=== PATIENT | female | born 1975 | race Caucasian/White ===

== ENCOUNTER → 2016-11-03 | Outpatient (CLI) | payer BC, OTHER ==
[2016-05-16 21:20] VITALS: BP 130/70
[~2016-11-03] MED LIST: AZIT250T PO; HYDR-971 PO; INSU100I7 SQ; META-21 PO; PRED50TA PO; TRAM50TA PO
--- NOTE | 2016-11-03 15:23 | RAD ---
Indication: Heavy menses. Transabdominal and transvaginal sonography was performed. The uterus measures 11.9 x 7.8 x 6.2 cm. The endometrium is 10 mm in thickness. No uterine mass is identified. There are small cervical nabothian cysts. The right ovary measures 2.4 x 2.0 x 1.7 cm. The left ovary measures 3.5 x 2.8 x 2.2 cm. No adnexal mass or free fluid is seen. Impression: Unremarkable transabdominal and transvaginal pelvic ultrasound.
== END | disposition home or self-care (01) ==
LOC: US 13:25
PROVIDERS: ATTEND Nurse Practitioner Family
DX: N93.9 Abnormal uterine and vaginal bleeding, unspecified (principal)
CPT/HCPCS: 76830; 76856

== ENCOUNTER 2016-12-14 13:52 | Observation (INO) | payer OTHER ==
[~2016-12-14] VITALS: Ht 165.1 cm; Wt 120.3 kg
[2016-12-14 14:29] LABS: BASO # 0.1 x10^3/uL (0.0-0.2); BASO % 1 % (0-3); EOS # 0.2 x10^3/uL (0.0-0.7); EOS % 2 % (0-3); HEMATOCRIT 33.7 % (36.0-47.0); LYMPH % 24 % (24-48); MEAN CORPUSCULAR HEMOGLOBIN 27 pg (25-35); MEAN CORPUSCULAR HGB CONC 33 g/dL (31-37); MEAN CORPUSCULAR VOLUME 81 fL (79-100); MONO # 0.8 x10^3/uL (0.0-1.1); MONO % 7 % (0-9); NEUT # 8.2 x10^3uL (1.8-7.7); NEUT % 67 % (31-73); PLATELET COUNT 330 x10^3/uL (140-400); RED BLOOD COUNT 4.14 x10^6/uL (3.50-5.40); RED CELL DISTRIBUTION WIDTH 17.3 % (11.5-14.5); WHITE BLOOD COUNT 12.3 x10^3/uL (4.0-11.0)
[2016-12-14] MEDS ORDERED: ASPIRIN 81 MG TAB.CHEW PO ONE (14:30)
[2016-12-14] MEDS ORDERED: NITROGLYCERIN SUBLINGUAL 0.4 MG BOTTLE OF 25. SL ONE (14:30)
--- NOTE | 2016-12-14 14:31 | RAD ---
Portable chest, 12/14/2016: History: Chest pain Comparison is made to a study from 09/06/2011. The heart is near the upper limits of normal in size. The pulmonary vascularity is normal. No pulmonary infiltrates are seen. There is no evidence of pleural fluid. IMPRESSION: No acute cardiopulmonary abnormality is detected.
[2016-12-14 14:39] LABS: CALCIUM 8.9 mg/dL (8.5-10.1); GFR 61.7; POTASSIUM 3.6 mmol/L (3.5-5.1)
[2016-12-14] MEDS ORDERED: IV NORMAL SALINE 1,000ML 1,000 ML IV ONE (14:45)
--- NOTE | 2016-12-14 15:06 | EKG ---
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
[2016-12-14] MEDS ORDERED: NITROGLYCERIN SUBLINGUAL 0.4 MG BOTTLE OF 25. SL PRN (15:15)
[2016-12-14] MEDS ORDERED: ONDANSETRON PF 4 MG/2 ML VIAL. IV PRN (15:15)
[2016-12-14] MEDS ORDERED: MORPHINE SULFATE 2 MG/ML DISP.SYRIN. IV PRN (15:15)
--- NOTE | 2016-12-14 15:41 | PHYS DOC ---
Past History Past Medical History: Asthma, Diabetes Past Surgical History: Cholecystectomy, Smoking: Cigarettes Alcohol Use: Occasionally Drug Use: None Adult General Chief Complaint Chief Complaint: CHEST PAIN HPI HPI 41-year-old female presenting the emergency department with chest pain. She describes the pain as a pressure sensation along the mid chest. It radiates down her left arm and is associated with nausea. She denies shortness of breath or abdominal pain. The pressure is mild to moderate intermittent and is been present since about 8:00 this morning. She reports a family history of heart disease. She states her father had a heart attack in his mid to late 30s. She denies unilateral leg swelling hemoptysis personal or family history of blood clotting disorders. Review of systems is negative for fevers chills cough. Positive for nausea and chest pain. All other review of systems is negative unless otherwise noted in history of present illness. ED course: 41-year-old female presenting with chest pain. EKG obtained.EKG shows sinus rhythm with tachy rate. Normal intervals. Normal axis. ST segments are congruent. Not suggestive of ACS. Reviewed by myself. Chest x-ray obtained as well. Blood work obtained. Initial troponin negative. Patient given aspirin and nitroglycerin. Given the patient's pain description and family history, the patient was admitted for serial blood tests and cardiology consultation. Review of Systems Review of Systems SEE ABOVE. Current Medications Current Medications Current Medications Medications (Trade) Dose Ordered Sig/[facility] Start Time Stop Time Status Last Admin Dose Admin Aspirin (Children'S Aspirin) 324 mg 1X ONCE 12/14/16 14:30 12/14/16 14:31 DC 12/14/16 14:30 324 MG Morphine Sulfate (Morphine 2mg Syringe) 2 mg PRN Q2HR PRN 12/14/16 15:15 12/15/16 15:14 Nitroglycerin (Nitrostat) 0.4 mg PRN Q5MIN PRN 12/14/16 15:15 12/15/16 15:14 Ondansetron HCl (Zofran) 4 mg PRN Q4HRS PRN 12/14/16 15:15 12/15/16 15:14 Sodium Chloride 1,000 ml @ 1,000 mls/hr 1X ONCE 12/14/16 14:45 12/14/16 15:44 12/14/16 14:45 1,000 MLS/HR Allergies Allergies Allergies Coded Allergies Type Severity Reaction Last Updated Verified No Known Drug Allergies 01/14/15 No Physical Exam Physical Exam Constitutional: Well developed, well nourished, no acute distress, non-toxic appearance. [] HENT: Normocephalic, atraumatic, bilateral external ears normal, oropharynx moist, no oral exudates, nose normal. [] Eyes: PERRLA, EOMI, conjunctiva normal, no discharge. [] Neck: Normal range of motion, no tenderness, supple, no stridor. [] Cardiovascular:Heart rate regular rhythm, no murmur [] Lungs & Thorax: Bilateral breath sounds clear to auscultation [] Abdomen: Bowel sounds normal, soft, no tenderness, no masses, no pulsatile masses. [] Skin: Warm, dry, no erythema, no rash. [] Back: No tenderness, no CVA tenderness. [] Extremities: No tenderness, no cyanosis, no clubbing, ROM intact, no edema. [] Neurologic: Alert and oriented X 3, normal motor function, normal sensory function, no focal deficits noted. [] Psychologic: Affect normal, judgement normal, mood normal. [] Current Patient Data Vital Signs Vital Signs Date Time Temp Pulse Resp B/P (MAP) Pulse Ox O2 Delivery O2 Flow Rate FiO2 12/14/16 14:30 100 121/62 Lab Results Laboratory Tests Test 12/14/16 14:14 White Blood Count 12.3 x10^3/uL (4.0-11.0) H Red Blood Count 4.14 x10^6/uL (3.50-5.40) Hemoglobin 11.0 g/dL (12.0-15.5) L Hematocrit 33.7 % (36.0-47.0) L Mean Corpuscular Volume 81 fL (79-100) Mean Corpuscular Hemoglobin 27 pg (25-35) Mean Corpuscular Hemoglobin Concent 33 g/dL (31-37) Red Cell Distribution Width 17.3 % (11.5-14.5) H Platelet Count 330 x10^3/uL (140-400) Neutrophils (%) (Auto) 67 % (31-73) Lymphocytes (%) (Auto) 24 % (24-48) Monocytes (%) (Auto) 7 % (0-9) Eosinophils (%) (Auto) 2 % (0-3) Basophils (%) (Auto) 1 % (0-3) Neutrophils # (Auto) 8.2 x10^3uL (1.8-7.7) H Lymphocytes # (Auto) 3.0 x10^3/uL (1.0-4.8) Monocytes # (Auto) 0.8 x10^3/uL (0.0-1.1) Eosinophils # (Auto) 0.2 x10^3/uL (0.0-0.7) Basophils # (Auto) 0.1 x10^3/uL (0.0-0.2) D-Dimer (Anyi) 0.58 mg/L (0.00-0.50) H Sodium Level 140 mmol/L (136-145) Potassium Level 3.6 mmol/L (3.5-5.1) Chloride Level 103 mmol/L (98-107) Carbon Dioxide Level 29 mmol/L (21-32) Anion Gap 8 (6-14) Blood Urea Nitrogen 8 mg/dL (7-20) Creatinine 1.0 mg/dL (0.6-1.0) Estimated GFR (Cockcroft-Gault) 61.7 Glucose Level 167 mg/dL (70-99) H Calcium Level 8.9 mg/dL (8.5-10.1) Troponin I Quantitative < 0.017 ng/mL (0-0.055) EKG EKG EKG shows sinus rhythm with mild tachycardia. [place] is mildly leftward. ST segments congruent. Reviewed by myself. [] Radiology/Procedures Radiology/Procedures [] Course & Med Decision Making Course & Med Decision Making Pertinent Labs and Imaging studies reviewed. (See chart for details) [] Dragon Disclaimer Dragon Disclaimer This chart was dictated in whole or in part using Voice Recognition software in a busy, high-work load, and often noisy Emergency Department environment. It may contain unintended and wholly unrecognized errors or omissions. Departure Departure: Impression: Primary Impression: Chest pain Disposition: ADMITTED INPATIENT Admitting Physician: Sam Bradford Condition: STABLE Referrals: SAM BRADFORD MD (PCP) ÓSCAR STEEN MD Dec 14, 2016 15:41
[2016-12-14] MEDS ORDERED: IOHEXOL 300 MG/ML 75 ML VIAL. IV ONE (16:00)
--- NOTE | 2016-12-14 16:32 | RAD ---
Indication chest pain. Elevated d-dimer. Axial images through the chest were obtained. The examination was tailored for the detection of pulmonary embolus. MIP images were generated and reviewed. 75 cc of Omnipaque 300 was administered intravenously. No prior CT imaging of the chest is available. The study is negative for pulmonary embolus. The thoracic aorta appears unremarkable. Significant hilar or mediastinal adenopathy is not seen. An acute parenchymal infiltrate is not seen. A dominant soft tissue mass in either lung is not seen. Imaging through the upper abdomen shows no acute finding. Clips are noted in the gallbladder fossa IMPRESSION: No acute finding seen in the chest. Negative study for pulmonary embolus PQRS Compliance Statement: One or more of the following individualized dose reduction techniques were utilized for this examination: 1. Automated exposure control 2. Adjustment of the mA and/or kV according to patient size 3. Use of iterative reconstruction technique
[2016-12-14 18:21] VITALS: BP 105/73
[2016-12-14 19:31] VITALS: BP 94/62
[2016-12-14] MEDS ORDERED: ACETAMINOPHEN 500 MG TABLET PO PRN (19:45)
[2016-12-14] MEDS: ACETAMINOPHEN 325 MG TABLET PO PRN (19:56)
[2016-12-14] MEDS ORDERED: DIPH25CA58 PO (21:07)
[2016-12-14] MEDS ORDERED: LISI1TAB3 PO (21:07)
[2016-12-14] MEDS ORDERED: GLIM2TAB2 PO (21:07)
[2016-12-14] MEDS ORDERED: diphenhydrAMINE HCL 25 MG CAPSULE PO SCH (21:30)
[2016-12-14 22:56] VITALS: BP 102/68
[2016-12-15 02:19] LABS: BASO # 0.1 x10^3/uL (0.0-0.2); BASO % 1 % (0-3); CALCIUM 8.6 mg/dL (8.5-10.1); CREATININE 0.7 mg/dL (0.6-1.0); EOS # 0.2 x10^3/uL (0.0-0.7); EOS % 2 % (0-3); GFR 93.2; HEMATOCRIT 32.9 % (36.0-47.0); HEMOGLOBIN 10.9 g/dL (12.0-15.5); LYMPH # 3.4 x10^3/uL (1.0-4.8); LYMPH % 33 % (24-48); MEAN CORPUSCULAR HEMOGLOBIN 27 pg (25-35); MEAN CORPUSCULAR HGB CONC 33 g/dL (31-37); MEAN CORPUSCULAR VOLUME 81 fL (79-100); MONO # 0.7 x10^3/uL (0.0-1.1); MONO % 7 % (0-9); NEUT # 5.8 x10^3uL (1.8-7.7); NEUT % 57 % (31-73); PLATELET COUNT 309 x10^3/uL (140-400); POTASSIUM 3.8 mmol/L (3.5-5.1); RED BLOOD COUNT 4.04 x10^6/uL (3.50-5.40); RED CELL DISTRIBUTION WIDTH 17.7 % (11.5-14.5); WHITE BLOOD COUNT 10.2 x10^3/uL (4.0-11.0)
[2016-12-15] MEDS: ACETAMINOPHEN 325 MG TABLET PO PRN ×2 (02:23→10:42)
[2016-12-15 05:32] VITALS: BP 103/67
[2016-12-15] MEDS ORDERED: GLIMEPIRIDE 2 MG TABLET PO SCH (08:00)
[2016-12-15 10:25] VITALS: BP 91/64
--- NOTE | 2016-12-15 10:28 | EKG ---
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 RI6.01 Unconfirmed report No previous ECG available for comparison Electronically Signed On 01-11-2017 11:36:51 CDT by Raimundo Max
--- NOTE | 2016-12-15 13:32 | CARD ---
APPROVED REPORT EXAM: Two-dimensional and M-mode echocardiogram with Doppler and color Doppler. Other Information Quality : Average Rhythm : NSR INDICATION Chest Pain 2D DIMENSIONS RVDd3.1 (2.9-3.5cm)Left Atrium(2D)3.9 (1.6-4.0cm) IVSd1.0 (0.7-1.1cm)Aortic Root(2D)2.8 (2.0-3.7cm) LVDd5.3 (3.9-5.9cm)LVOT Diameter2.1 (1.8-2.4cm) PWd1.0 (0.7-1.1cm)LVDs3.2 (2.5-4.0cm) FS (%) 35.1 %SV96.2 ml LVEF(%)65.3 (>50%) Aortic Valve AoV Peak Vimal.164.6cm/sAoV VTI36.3cm AO Peak GR.10.8mmHgLVOT Peak Vimal.113.3cm/s LVOT VTI 25.46cmAO Mean GR.7mmHg JAZMINE (VMAX)2.34rz9ENZ (VTI)2.52cm2 Mitral Valve MV E Ykhynnnw265.0cm/sMV DECEL YNRL158sg MV A Zykyxibw58.6cm/sMV KME67dq E/A Ratio1.0MV A Kzobagnt107vj MVA (PHT)3.24cm2 Tricuspid Valve TR P. Ekasfzkf601zb/sRAP EDSFIUII9omKy TR Peak Gr.84rtVeUGZF39pdOr Pulmonary Vein S1 Cirwzopu85.7cm/sD2 Dxhqcplh73.3cm/s LEFT VENTRICLE The left ventricle is normal size. There is normal left ventricular wall thickness. Left ventricle sy stolic function is normal. The Ejection Fraction is 60-65%. There is normal LV segmental wall motion. The left ventricular diastolic function and filling is normal for age. There is no ventricular septa l defect visualized. RIGHT VENTRICLE The right ventricle is normal size. The right ventricular systolic function is normal. ATRIA The left atrium size is normal. The right atrium size is normal. The interatrial septum is intact wit h no evidence for an atrial septal defect or patent foramen ovale as noted on 2-D or Doppler imaging. AORTIC VALVE The aortic valve is normal in structure and function. The aortic valve is trileaflet. Doppler and Col or Flow revealed no significant aortic regurgitation. There is no significant aortic valvular stenosi s. MITRAL VALVE The mitral valve is normal in structure and function. There is no mitral valve stenosis. Doppler and Color Flow revealed no mitral valve regurgitation noted. TRICUSPID VALVE The tricuspid valve is normal in structure and function. Doppler and Color Flow revealed trivial tric uspid regurgitation. The PA pressure was estimated at 15 mmHg. There is no tricuspid valve stenosis. PULMONIC VALVE The pulmonic valve is not well visualized. Doppler and Color Flow revealed trace pulmonic valvular re gurgitation. There is no pulmonic valvular stenosis. GREAT VESSELS The aortic root is normal in size. The ascending aorta is normal in size. The IVC is normal in size a nd collapses >50% with inspiration. PERICARDIAL EFFUSION There is no evidence of significant pericardial effusion. Critical Notification Critical Value: No <Conclusion> Left ventricle systolic function is normal. The Ejection Fraction is 60-65%. There is normal LV segmental wall motion.
== END 2016-12-15 16:57 | disposition home or self-care (01) ==
LOC: ER 13:52 → 1 SOUTH 15:11
PROVIDERS: ADMIT Family Medicine; ATTEND Family Medicine
DX: R07.9 Chest pain, unspecified (principal); J45.909 Unspecified asthma, uncomplicated; E11.9 Type 2 diabetes mellitus without complications; Z87.891 Personal history of nicotine dependence; Z82.49 Family history of ischemic heart disease and other diseases of the circulatory system
CPT/HCPCS: 36415; 71010; 71275; 80048; 81025; 82947; 84484; 85027; 85379; 93005; 93306; 96360; 99285; G0378; Q0163; Q9967; G0379; J7030

== ENCOUNTER 2017-05-28 23:16 | Emergency (ER) | payer OTHER ==
[~2017-05-28] VITALS: Ht 165.1 cm; Wt 128.1 kg
[~2017-05-28 23:16] MED LIST changes: +DIPH25CA58 PO; +GLIM2TAB2 PO; +LISI1TAB3 PO
[2017-05-28 23:20] VITALS: BP 106/62
--- NOTE | 2017-05-29 00:03 | PHYS DOC ---
Past History Past Medical History: Asthma, Diabetes Past Surgical History: Cholecystectomy, Smoking: Cigarettes Alcohol Use: Occasionally Drug Use: None Adult General Chief Complaint Chief Complaint: rectal foreign body HPI HPI Patient is a 42 year old female who presents with rectal foreign body. The patient reports about 30 minutes prior to arrival she placed a vibrator into her rectum & she could not remove it. Reports the object to be plastic, approx 7 cm in length. She denies any fevers/chills, nausea, vomiting, abdominal pain , rectal bleeding. Review of Systems Review of Systems Constitutional: Denies fever or chills Respiratory: Denies cough or shortness of breath Cardiovascular: Denies chest pain GI: Denies abdominal pain, nausea, vomiting, bloody stools or diarrhea. reports rectal foreign body. Musculoskeletal: Denies back pain Neurologic: Denies headache All other systems were reviewed and found to be within normal limits, except as documented in this note. Allergies Allergies Allergies Coded Allergies Type Severity Reaction Last Updated Verified No Known Drug Allergies 01/14/15 No Physical Exam Physical Exam Constitutional: obese, no acute distress, non-toxic appearance. HENT: Normocephalic, atraumatic, bilateral external ears normal, oropharynx moist, nose normal. Eyes: conjunctiva normal, no discharge. Cardiovascular: no edema. Lungs & Thorax: no respiratory distress. Abdomen: soft, nontender, nondistended. rectal: external hemorrhoids present circumferentially. with digital rectal exam, unable to palpate reported plastic foreign body. vibrations noted internally. Back: No CVA tenderness. Extremities: No deformity. Neurologic: Alert and oriented X 3 EKG EKG [] Radiology/Procedures Radiology/Procedures [] Course & Med Decision Making Course & Med Decision Making Pertinent Labs and Imaging studies reviewed. (See chart for details) The patient presents with rectal foreign body. I was unable to reach the object with digital rectal exam. Ordered KUB to determine location of the object. Notified by RN that the patient had had a bowel movement & spontaneously passed the foreign body. Her symptoms resolved completely & she requested to leave. Recommend follow up with primary care physician for additional concerns. Return for high fever, severe pain, uncontrolled vomiting , inability to have bowel movement, rectal bleeding, any otherwise worsening condition. Discharged home in stable condition. [] Dragon Disclaimer Dragon Disclaimer This electronic medical record was generated, in whole or in part, using a voice recognition dictation system. Departure Departure: Impression: Primary Impression: Rectal foreign body Disposition: HOME, SELF-CARE Condition: IMPROVED Referrals: LARISSA VACA MD (PCP) Patient Instructions: Foreign Body Additional Instructions: You were seen in the emergency department today for rectal foreign body. Avoid placing objects into your rectum as they can become stuck, cause perforation or infection. Follow up as needed with primary care. Problem Qualifiers Primary Impression: Rectal foreign body Encounter type: initial encounter Qualified Codes: T18.5XXA - Foreign body in anus and rectum, initial encounter KORY VEGA MD May 29, 2017 00:03
== END 2017-05-29 00:15 | disposition home or self-care (01) ==
LOC: ER 23:16
DX: T18.5XXA Foreign body in anus and rectum, initial encounter (principal); E11.9 Type 2 diabetes mellitus without complications; J45.909 Unspecified asthma, uncomplicated; F17.210 Nicotine dependence, cigarettes, uncomplicated; X58.XXXA Exposure to other specified factors, initial encounter; Y93.89 Activity, other specified; Y99.8 Other external cause status; Y92.89 Other specified places as the place of occurrence of the external cause
CPT/HCPCS: 99283

== ENCOUNTER 2017-08-21 09:46 | Inpatient (IN) | payer OTHER ==
[~2017-08-21] VITALS: Ht 165.1 cm; Wt 122.0 kg
[2017-08-21 10:15] VITALS: BP_SYST 123; BP_SYST 129; BP_DIAS 76
[2017-08-21] MEDS ORDERED: BECL8.7A6 IH (10:48)
[2017-08-21] MEDS ORDERED: PRED20TA PO (10:48)
[2017-08-21] MEDS ORDERED: CYCL-331 PO (10:48)
[2017-08-21] MEDS ORDERED: OSEL75CA PO (10:48)
[2017-08-21] MEDS ORDERED: BENZ100C PO (10:48)
[2017-08-21] MEDS ORDERED: MELO7.5T29 PO (10:48)
[2017-08-21 12:46] LABS: BASO # 0.1 x10^3/uL (0.0-0.2); BASO % 0 % (0-3); EOS # 0.2 x10^3/uL (0.0-0.7); EOS % 1 % (0-3); HEMATOCRIT 37.5 % (36.0-47.0); HEMOGLOBIN 12.2 g/dL (12.0-15.5); LYMPH # 2.3 x10^3/uL (1.0-4.8); LYMPH % 19 % (24-48); MEAN CORPUSCULAR HEMOGLOBIN 27 pg (25-35); MEAN CORPUSCULAR HGB CONC 33 g/dL (31-37); MEAN CORPUSCULAR VOLUME 83 fL (79-100); MONO # 0.6 x10^3/uL (0.0-1.1); MONO % 5 % (0-9); NEUT # 9.2 x10^3uL (1.8-7.7); NEUT % 75 % (31-73); PLATELET COUNT 325 x10^3/uL (140-400); RED BLOOD COUNT 4.52 x10^6/uL (3.50-5.40); RED CELL DISTRIBUTION WIDTH 16.3 % (11.5-14.5); WHITE BLOOD COUNT 12.3 x10^3/uL (4.0-11.0)
[2017-08-21 12:53] LABS: ALBUMIN 3.5 g/dL (3.4-5.0); ALBUMIN/GLOBULIN RATIO 0.8 (1.0-1.7); CALCIUM 9.5 mg/dL (8.5-10.1); CREATININE 0.9 mg/dL (0.6-1.0); GFR 69.3; POTASSIUM 3.9 mmol/L (3.5-5.1); TOTAL BILIRUBIN 0.1 mg/dL (0.2-1.0); TOTAL PROTEIN 8.1 g/dL (6.4-8.2)
[2017-08-21] MEDS: IV NORMAL SALINE 1,000ML 1,000 ML IV SCH ×2 (13:05→20:51)
[2017-08-21] MEDS: LACTOBACILLUS RHAMNOSUS GG 1 CAPSULE. PO SCH ×2 (13:06→20:51)
--- NOTE | 2017-08-21 13:22 | RAD ---
Chest, 2 views, 08/21/2017: History: Shortness of breath Comparison is made to a study from 12/14/2016. The heart size and pulmonary vascularity are normal. No pulmonary infiltrates are seen. There is no evidence of pleural fluid. Mild spurring is present in the spine. IMPRESSION: No acute cardiopulmonary abnormality is detected.
[2017-08-21] MEDS: IPRATRPIUM/ALBUTEROL 0.5/2.5MG 3 ML NEBU. NEB SCH ×3 (13:25→20:33)
[2017-08-21 13:48] LABS: COLOR,URINE STRAW
[2017-08-21 13:49] LABS: BACTERIA,URINE MANY /HPF (0-FEW); BILIRUBIN,URINE NEG (NEG); CLARITY,URINE HAZY; GLUCOSE,URINE NEG (NEG); NITRITE,URINE POS (NEG); RBC,URINE 0 /HPF (0-2); SQUAMOUS EPITHELIAL CELL,UR FEW /LPF; UROBILINOGEN,URINE 0.2 mg/dL (0.2 mg/dL)
--- NOTE | 2017-08-21 13:51 | EKG ---
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
--- NOTE | 2017-08-21 14:12 | RAD ---
CTA of the chest with contrast, 08/21/2017: History: Difficulty breathing, shortness of breath Multidetector CT imaging was performed following IV bolus injection of iodinated contrast material. Multiplanar reconstructions were produced including coronal and sagittal MIP images. No filling defects are seen in the central pulmonary arteries to suggest pulmonary bullae. The thoracic aorta is of normal caliber. No mediastinal or hilar adenopathy is seen. A trace amount of pericardial fluid is present. No significant pulmonary infiltrate or mass is identified. There is no evidence of pleural fluid. IMPRESSION: No CT evidence of central pulmonary emboli. PQRS Compliance Statement: One or more of the following individualized dose reduction techniques were utilized for this examination: 1. Automated exposure control 2. Adjustment of the mA and/or kV according to patient size 3. Use of iterative reconstruction technique
[2017-08-21 15:12] VITALS: BP 95/60
[2017-08-21] MEDS ORDERED: IPRATRPIUM/ALBUTEROL 0.5/2.5MG 3 ML NEBU. NEB SCH (16:00)
[2017-08-21] MEDS: BENZONATATE 100 MG CAPSULE. PO SCH ×2 (16:24→20:51)
[2017-08-21] MEDS: HEPARIN PF for SUB-Q USE 5,000 UNIT/0.5 ML VIAL. SQ SCH ×2 (16:30→20:53)
[2017-08-21] MEDS ORDERED: DEXTROSE 50% 25 GM / 50ML DISP.SYRIN. IV PRN (18:00)
[2017-08-21 20:01] VITALS: BP 138/76
[2017-08-21] MEDS: BUDESONIDE 0.5 MG/2 ML NEBU NEB SCH (20:33)
[2017-08-21] MEDS: OSELTAMIVIR 75 MG CAPSULE PO SCH (20:51)
[2017-08-21] MEDS: CYCLOBENZAPRINE 10 MG TABLET. PO SCH (20:51)
[2017-08-21] MEDS: INSULIN ASPART 300 UNITS/3 ML INSULN.PEN SQ SCH (20:51)
[2017-08-21] MEDS: diphenhydrAMINE HCL 25 MG CAPSULE PO SCH (20:52)
[2017-08-21] MEDS ORDERED: MELOXICAM 7.5 MG TABLET PO SCH (21:00)
[2017-08-21] MEDS ORDERED: BECLOMETHASONE DIPROPIONATE IH SCH (21:00)
[2017-08-21 22:33] VITALS: BP 109/74
[2017-08-22] MEDS: HEPARIN PF for SUB-Q USE 5,000 UNIT/0.5 ML VIAL. SQ SCH ×3 (04:38→21:13)
[2017-08-22] MEDS: IV NORMAL SALINE 1,000ML 1,000 ML IV SCH ×3 (04:39→21:11)
[2017-08-22 05:11] VITALS: BP 109/75
[2017-08-22] MEDS: IPRATRPIUM/ALBUTEROL 0.5/2.5MG 3 ML NEBU. NEB SCH ×4 (05:52→20:58)
[2017-08-22 07:15] LABS: BASO % 0 % (0-3); EOS # 0.2 x10^3/uL (0.0-0.7); EOS % 1 % (0-3); HEMATOCRIT 33.6 % (36.0-47.0); LYMPH # 4.5 x10^3/uL (1.0-4.8); LYMPH % 30 % (24-48); MEAN CORPUSCULAR HEMOGLOBIN 27 pg (25-35); MEAN CORPUSCULAR HGB CONC 33 g/dL (31-37); MEAN CORPUSCULAR VOLUME 84 fL (79-100); MONO % 7 % (0-9); NEUT # 9.2 x10^3uL (1.8-7.7); NEUT % 61 % (31-73); PLATELET COUNT 322 x10^3/uL (140-400); RED BLOOD COUNT 4.03 x10^6/uL (3.50-5.40); RED CELL DISTRIBUTION WIDTH 16.4 % (11.5-14.5)
[2017-08-22 07:23] LABS: CALCIUM 8.6 mg/dL (8.5-10.1); CREATININE 0.7 mg/dL (0.6-1.0); GFR 92.7; POTASSIUM 3.5 mmol/L (3.5-5.1)
[2017-08-22] MEDS: OSELTAMIVIR 75 MG CAPSULE PO SCH ×2 (08:19→21:12)
[2017-08-22] MEDS: predniSONE 20 MG TABLET PO SCH (08:19)
[2017-08-22] MEDS: BENZONATATE 100 MG CAPSULE. PO SCH ×3 (08:20→21:12)
[2017-08-22] MEDS: GLIMEPIRIDE 2 MG TABLET PO SCH (08:20)
[2017-08-22] MEDS: hydroCHLOROthiazide 12.5 MG CAPSULE PO SCH (08:20)
[2017-08-22] MEDS: LACTOBACILLUS RHAMNOSUS GG 1 CAPSULE. PO SCH ×2 (08:20→21:12)
[2017-08-22] MEDS: LISINOPRIL 10 MG TABLET PO SCH (08:20)
[2017-08-22] MEDS: INSULIN ASPART 300 UNITS/3 ML INSULN.PEN SQ SCH ×4 (08:29→21:00)
[2017-08-22 10:35] VITALS: BP 102/72
[2017-08-22] MEDS: BUDESONIDE 0.5 MG/2 ML NEBU NEB SCH ×2 (10:44→20:58)
[2017-08-22 15:18] VITALS: BP 102/64
[2017-08-22 19:45] VITALS: BP 118/79
[2017-08-22] MEDS: diphenhydrAMINE HCL 25 MG CAPSULE PO SCH (21:12)
[2017-08-22] MEDS: CYCLOBENZAPRINE 10 MG TABLET. PO SCH (21:12)
[2017-08-23] MEDS: IV NORMAL SALINE 1,000ML 1,000 ML IV SCH (05:00)
[2017-08-23] MEDS: HEPARIN PF for SUB-Q USE 5,000 UNIT/0.5 ML VIAL. SQ SCH (05:44)
[2017-08-23] MEDS: IPRATRPIUM/ALBUTEROL 0.5/2.5MG 3 ML NEBU. NEB SCH (05:58)
[2017-08-23 06:15] VITALS: BP 112/67
[2017-08-23] MEDS: INSULIN ASPART 300 UNITS/3 ML INSULN.PEN SQ SCH (08:00)
[2017-08-23 08:38] VITALS: BP 112/67
[2017-08-23] MEDS: OSELTAMIVIR 75 MG CAPSULE PO SCH (08:38)
[2017-08-23] MEDS: hydroCHLOROthiazide 12.5 MG CAPSULE PO SCH (08:38)
[2017-08-23] MEDS: BENZONATATE 100 MG CAPSULE. PO SCH (08:38)
[2017-08-23] MEDS: GLIMEPIRIDE 2 MG TABLET PO SCH (08:38)
[2017-08-23] MEDS: LACTOBACILLUS RHAMNOSUS GG 1 CAPSULE. PO SCH (08:38)
[2017-08-23] MEDS: LISINOPRIL 10 MG TABLET PO SCH (08:38)
[2017-08-23] MEDS: predniSONE 20 MG TABLET PO SCH (08:38)
[2017-08-23] MEDS ORDERED: IPRA3AMP NEB (10:27)
[2017-08-23] MEDS ORDERED: HYDR12.53 PO (10:27)
--- NOTE | 2017-08-23 17:39 | PN ---
DATE: 08/22/2017 SUBJECTIVE: A 42-year-old female in with influenza. White count went up to 15,000, hemoglobin and hematocrit 11 and 33. The patient's chemistries is outside of her elevated sugars. The patient is basically stable there. The patient's CTA was performed due to an elevated D-dimer, which turned out negative. The patient is still receiving respiratory therapy, PT, and OT. OBJECTIVE: VITAL SIGNS: Otherwise, the patient's blood pressure 102/60, respiratory rate 20, pulse 80, afebrile. LUNGS: Diminished, but clear. CARDIOVASCULAR: Regular sinus rhythm. ABDOMEN: Soft, nontender, no rebounding or guarding. Positive bowel sounds, no hepatosplenomegaly was noted. LARISSA VACA MD DR: VICK/tobin JOB#: [id number] / [id number]
== END 2017-08-23 10:50 | disposition home or self-care (01) | DRG 195 ==
LOC: 1 SOUTH 09:51
PROVIDERS: ADMIT Family Medicine; ATTEND Family Medicine
DX: J11.00 Influenza due to unidentified influenza virus with unspecified type of pneumonia (principal); E11.9 Type 2 diabetes mellitus without complications; R50.81 Fever presenting with conditions classified elsewhere; J45.909 Unspecified asthma, uncomplicated; R79.1 Abnormal coagulation profile; Z90.49 Acquired absence of other specified parts of digestive tract; Z88.7 Allergy status to serum and vaccine; Z88.8 Allergy status to other drugs, medicaments and biological substances; Z91.012 Allergy to eggs; Z83.3 Family history of diabetes mellitus
CPT/HCPCS: 36415; 71046; 71275; 80048; 80053; 81001; 82947; 83605; 83880; 84484; 85025; 85379; 87040; 87086; 87186; 93005; 94640; 99406; J1815; J1956; J7512; J7620; J7626; Q0163; J7030

== ENCOUNTER 2017-12-06 14:25 | Emergency (ER) | payer SELFPAY ==
[~2017-12-06] VITALS: Ht 165.1 cm; Wt 128.1 kg
[~2017-12-06 14:25] MED LIST changes: +BECL8.7A6 IH; +BENZ100C PO; +CYCL-331 PO; +HYDR12.53 PO; +IPRA3AMP NEB; +MELO7.5T29 PO; +OSEL75CA PO; +PRED20TA PO
[2017-12-06 14:40] VITALS: BP 146/84
[2017-12-06] MEDS ORDERED: oxyCODONE IR 5 MG TABLET PO ONE (15:00)
[2017-12-06] MEDS ORDERED: HYDR-971 PO (15:00)
--- NOTE | 2017-12-06 15:07 | ED.ADGEN ---
Past History Past Medical History: Diabetes, Gallstones, Other Past Surgical History: Cholecystectomy, , Tubal ligation Smoking: Cigarettes Alcohol Use: Occasionally Drug Use: None Adult General Chief Complaint Chief Complaint Abscess to buttock [facility] HPI Patient is a 42 year old female who presents with early abscess to left buttock. Patient seen by her PCP yesterday for the same as prescribed antibiotic. The patient did not fill her Bactrim DS secondary to cost. No fever chills, nausea vomiting sweats. Patient's taken 4 g Tylenol with past 24 hours limited relief. States skin sore is now larger. No history of MRSA.[] Review of Systems Review of Systems ROS as per HPI [] All other systems were reviewed and found to be within normal limits, except as documented in this note. Current Medications Current Medications Current Medications Medications (Trade) Dose Ordered Sig/[facility] Start Time Stop Time Status Last Admin Dose Admin Oxycodone HCl (Roxicodone) 10 mg ONCE ONCE 12/06/17 15:00 12/06/17 15:01 DC 12/06/17 14:56 10 MG Allergies Allergies Allergies Coded Allergies Type Severity Reaction Last Updated Verified influenza virus vaccine, specific Allergy Severe 08/21/17 Yes egg Allergy Unknown 08/21/17 Yes Physical Exam Physical Exam Constitutional: Well developed, well nourished, no acute distress, non-toxic appearance. [] HENT: Normocephalic, atraumatic, bilateral external ears normal. [] Eyes: PERRLA, EOMI, conjunctiva normal. [] Neck: Normal range of motion. [] Cardiovascular:Heart rate regular rhythm, no murmur [] Lungs & Thorax: Bilateral breath sounds clear [] Abdomen: Bowel sounds normal, soft, no tenderness. [] Buttocks: 15 cm, circular raised indurated area over intergluteal cleft, no fluctuance, drainage or stranding cellulitis. [] Back: No tenderness. [] Neurologic: Alert and oriented X 3, normal motor function, normal sensory function, no focal deficits noted. [] Psychologic: Affect normal, judgement normal, mood normal. [] Current Patient Data Vital Signs Vital Signs Date Time Temp Pulse Resp B/P (MAP) Pulse Ox O2 Delivery O2 Flow Rate FiO2 12/06/17 14:56 18 98 Room Air 12/06/17 14:40 97.9 90 EKG EKG [] Radiology/Procedures Radiology/Procedures [] Course & Med Decision Making Course & Med Decision Making Pertinent Labs and Imaging studies reviewed. (See chart for details) [Pain addressed. Abscess, recommend going about, supportive care and close PCP follow-up.] Final Impression Final Impression [1. Soft tissue infection left buttocks] Dragon Disclaimer Dragon Disclaimer This electronic medical record was generated, in whole or in part, using a voice recognition dictation system. MINA DURAN DO Dec 06, 2017 15:07
== END 2017-12-06 15:11 | disposition home or self-care (01) ==
LOC: ER 14:25
DX: L08.89 Other specified local infections of the skin and subcutaneous tissue (principal); E11.9 Type 2 diabetes mellitus without complications; F17.210 Nicotine dependence, cigarettes, uncomplicated; Z88.7 Allergy status to serum and vaccine; Z91.012 Allergy to eggs
CPT/HCPCS: 99283